=== PATIENT | male | born 1960 | race Caucasian/White ===

== ENCOUNTER 2023-01-16 09:51 | Emergency (ER) | payer OTHER, SELFPAY ==
--- NOTE | ~2023-01-16 | US_ITS ---
EXAMINATION:US venous doppler LE RT INDICATION:Right lower extremity and calf pain TECHNIQUE: Multiple grayscale, color flow and Doppler images of the right lower extremity deep venous systems were obtained and reviewed. COMPARISON:Ultrasound dated 04/30/2019 FINDINGS: The common femoral, superficial femoral and popliteal veins demonstrate normal respiratory variation, augmentation and compressibility. Color flow is also seen within the posterior tibial, gr eater saphenous and profunda veins. IMPRESSION: 1: No lower extremity deep venous thrombosis. Reviewed, dictated and finalized at location A.
[2023-01-16 09:53] VITALS: BP 148/89; PULSE 125; RESP 18; TEMP 36.6; O2SAT 99
[2023-01-16 11:45] VITALS: BP 158/90; PULSE 109; RESP 18; O2SAT 99
--- NOTE | 2023-01-16 12:09 | ED.EXTPRO ---
HPI - Extremity Problem General Chief complaint: Extremity Problem,Nontraumatic <Misha Puga PA-C - Last Filed: 01/16/23 14:59> Stated complaint: right leg pain and wound since friday <Misha Puga PA-C - Last Filed: 01/16/23 14:59> Time Seen by Provider: 01/16/23 11:40 <CHARLENE Dean Last Filed: 01/16/23 14:59> Source: patient <CHARLENE Dean Last Filed: 01/16/23 14:59> Mode of arrival: ambulatory <CHARLENE Dean Last Filed: 01/16/23 14:59> Limitations: no limitations <Misha Puga PA-C - Last Filed: 01/16/23 14:59> History of Present Illness HPI Narrative: This is a 62-year-old male who presents to the ED with chief complaint of right lower leg pain redness and warmth x2 days. Notes a skin break in the skin of the right lower leg. States that he did not have any injuries. Reports swelling in the right lower leg. States he has not had anything like this before. Denies drainage from the leg. Denies fevers, chills, chest pain, shortness of breath, nausea, vomiting, abdominal pain. <Misha Puga PA-C - Last Filed: 01/16/23 14:59> Related Data Allergies/Adverse reactions: Allergies Allergy/AdvReac Type Severity Reaction Status Date / Time No Known Allergies Allergy Verified 01/16/23 11:49 <Misha Puga PA-C - Last Filed: 01/16/23 14:59> Review of Systems Review of Systems: CONSTITUTIONAL: Denies fever, chills, or sweats. EYES: Denies visual changes, redness, or discharge. ENT: Denies rhinorrhea, congestion, sore throat, or otalgia. CARDIOVASCULAR: Denies chest pain, palpitations, or edema. RESPIRATORY: Denies cough or dyspnea. GASTROINTESTINAL: Denies abdominal pain, nausea, vomiting, or diarrhea. GENITOURINARY: Denies dysuria or hematuria. SKIN: Endorses erythema and warmth. Denies rash or itching. MUSCULOSKELETAL: Endorses right lower leg pain. Denies back pain, joint pain, or myalgia. NEUROLOGIC: Denies headache, numbness, dizziness, or weakness. PSYCHIATRIC: Denies anxiety or depression. <Misha Puga PA-C - Last Filed: 01/16/23 14:59> Exam Narrative: GENERAL: Well-appearing, well-nourished, and in no acute distress. HEAD: Normocephalic, atraumatic. EYES: PERRLA and EOMI. ENT: Nares clear, no rhinorrhea or epistaxis. Mucous membranes moist. Oropharynx without tonsillar hypertrophy exudate or other lesions. NECK: Supple. No adenopathy or masses. CHEST: No respiratory distress. Clear to auscultation. No wheezes rales or rhonchi HEART: Regular rate and rhythm. No murmur heard. Normal peripheral pulses. ABDOMEN: Soft, nontender, nondistended, normal active bowel sounds. EXTREMITIES: RLE: Mild swelling of the right foot. Mild erythema of the right callahan. Moderate tenderness in the area of erythema. No drainage. Warmth present. Mild calf tenderness to palpation. LLE: benign Exam is otherwise normal. Normal range of motion. No edema. Ambulatory. SKIN: Erythema and warmth present. Warm, dry, no rash. Old healed wound to the right lateral callahan. NEURO: Alert and oriented x3. No focal deficits. PSYCH: Normal mood and affect. <Misha Puga PA-C - Last Filed: 01/16/23 14:59> Course HEALTH AND SAFETY TECHNICIAN/PA Physician Supervision For this patient encounter, I reviewed the HEALTH AND SAFETY TECHNICIAN or PA documentation, treatment plan, and medical decision making; and I had [id number] time with this patient. 62-year-old male presenting to the emerged department for evaluation of right lower extremity erythema and pain. Patient was negative for DVTs. Patient does have changes of chronic venous stasis and patient also has some erythema concerning for acute infection. Patient was started on antibiotics in the emergency department. Patient was encouraged of close follow-up with his primary care physician for wound check. All questions and concerns were addressed. Patient was well-appearing at time of discharge. <Duane Omer MD - Last Filed: 01/16/23 18:29> Vital
[2023-01-16] MEDS: AMPICILLIN SULB 3 GM/NS 100 ML 3 GM/100 ML VIAL IVPB (12:43)
[2023-01-16] MEDS: SODIUM CHLORIDE 0.9% IV 1,000 ML 999 ML IV CONT (12:43)
[2023-01-16 12:50] LABS: Basophils Absolute Auto 0.1 K/mm3 (0.0-0.1); Basophils Percent Auto 0.6 % (0.2-1.2); Eosinophils Absolute Auto 0.1 K/mm3 (0-0.3); Eosinophils Percent Auto 0.9 % (0-4.4); Hematocrit 48.9 % (42.0-52.0); Hemoglobin 16.6 g/dL (14.0-18.0); Immature Granulocyte Absolute 0.03 K/mm3 (0.00-0.031); Immature Granulocyte Percent A 0.3 % (0-0.5); Lymphocytes Absolute Auto 2.09 K/mm3 (0.9-3.2); Lymphocytes Percent Auto 19.3 % (18.3-44.2); Mean Corpuscular HGB Conc 33.9 g/dl (32-36); Mean Corpuscular Hemoglobin 32.4 pg (26-34); Mean Corpuscular Volume 95.5 fl (80-100); Mean Platelet Volume 10.3 fl (7.4-10.4); Monocytes Absolute Auto 0.9 K/mm3 (0.1-0.6); Monocytes Percent Auto 8.5 % (2.6-8.5); Neutrophils Absolute Auto 7.6 K/mm3 (1.3-6.7); Neutrophils Percent Auto 70.4 % (45.5-73.1); Platelet Count Result 204 k/mm3 (150-375); Red Blood Count 5.12 M/mm3 (4.6-6.20); Red Cell Distribution Width 12.7 % (11.5-14.5); White Blood Count 10.8 K/mm3 (4.5-10.0)
[2023-01-16 13:02] LABS: Prothrombin Time 12.9 Seconds (11.1-14.7)
[2023-01-16 13:03] LABS: Partial Thromboplastin Time 27.7 SECONDS (22.3-36.8)
[2023-01-16 13:08] LABS: Anion Gap 6 mmol/L (8-16); Blood Urea Nitrogen 11 mg/dL (9-20); CRP 0.9 mg/dL (<1.0); Calcium 8.8 mg/dL (8.4-10.2); Carbon Dioxide 32 mmol/L (22-30); Chloride 100 mmol/L (98-107); Estimated CRCL calculation 85 ml/min; Estimated Glomerular Filt Rate > 60; Glucose 104 mg/dL (65-110); Potassium 3.5 mmol/L (3.4-5.0); Sodium 138 mmol/L (137-145)
[2023-01-16 15:02] VITALS: BP 157/87; PULSE 101; RESP 18; O2SAT 98
== END 2023-01-16 15:22 | disposition home or self-care (01) ==
PROVIDERS: Emergency Provider Physician Assistant
DX: L03.115 Cellulitis of right lower limb (principal)
CPT/HCPCS: 36415; 80048; 85025; 85610; 85730; 86140; 93971; 96365; 96366; 99284; J0295; J7030

== ENCOUNTER 2023-07-20 21:06 | Emergency (ER) | payer OTHER, SELFPAY ==
[2023-07-20 21:17] VITALS: BP 149/94; PULSE 124; RESP 16; TEMP 36.7; O2SAT 95
--- NOTE | 2023-07-20 23:32 | ED.GENADULT ---
HPI - General Adult General Chief complaint: Wound/Laceration Stated complaint: R leg wound Time Seen by Provider: 07/20/23 22:58 History of Present Illness HPI narrative: 63-year-old male presented to the emergency department for evaluation of a wound to his right lower leg. Patient states over the course of the last 8 to 9 days he has had increased erythema and drainage from a wound on his right lower leg. Patient does have a prior history of cellulitis. Related Data Allergies Allergy/AdvReac Type Severity Reaction Status Date / Time No Known Allergies Allergy Verified 01/16/23 11:49 Review of Systems Review of Systems: All systems reviewed & are unremarkable except as noted in HPI and below Exam Narrative: APPEARANCE: Well appearing, no pain, no distress, well-nourished. HEAD: normocephalic, atraumatic. EYES: PERRLA/EOMI, conjunctivae clear. NOSE: Normal no drainage NECK: Supple. No adenopathy, no masses. RESPIRATORY: Airway patent, respirations nonlabored. Clear to auscultation bilaterally, no rales, rhonchi, wheezing. CARDIOVASCULAR: Regular rate and rhythm without murmurs rubs or gallops. ABDOMINAL: Soft, nontender, nondistended, normal bowel sounds MUSCULOSKELETAL: Moves all extremities. Strength/ROM intact, No edema, No calf tenderness. NEURO: Alert. Cranial nerves II through XII intact. Grossly intact SKIN: Cellulitis of right lower extremity Course Course Emergency Course: 61-year-old male presented emergency department for evaluation of wound on his right lower leg that is consistent with cellulitis. Patient was started on Keflex emergency department discharged home with Keflex. Patient was encouraged of close follow-up with his primary care physician for a wound check. All question concerns were addressed and patient was well-appearing at time of discharge. Vital Signs Vital signs: Vital Signs Temperature 98.0 F 07/20/23 21:17 Pulse Rate 124 H 07/20/23 21:17 Respiratory Rate 16 07/20/23 21:17 Blood Pressure 149/94 H 07/20/23 21:17 Pulse Oximetry 95 07/20/23 21:17 Oxygen Delivery Room Air 07/20/23 21:17 Temperature 98.0 F 07/20/23 21:17 Pulse Rate 124 H 07/20/23 21:17 Respiratory Rate 16 07/20/23 21:17 Blood Pressure 149/94 H 10/08/23 21:17 Pulse Oximetry 95 07/20/23 21:17 Oxygen Delivery Room Air 07/20/23 21:17 Medical Decision Making Differential Diagnosis Differential Diagnosis: Cellulitis, chronic venous stasis, abscess, DVT Vital Signs Vital Signs: Vital Signs Temperature 98.0 F 07/20/23 21:17 Pulse Rate 124 H 07/20/23 21:17 Respiratory Rate 16 07/20/23 21:17 Blood Pressure 149/94 H 07/20/23 21:17 Pulse Oximetry 95 07/20/23 21:17 Oxygen Delivery Room Air 07/20/23 21:17 Temperature 98.0 F 07/20/23 21:17 Pulse Rate 124 H 07/20/23 21:17 Respiratory Rate 16 07/20/23 21:17 Blood Pressure 149/94 H 07/20/23 21:17 Pulse Oximetry 95 07/20/23 21:17 Oxygen Delivery Room Air 07/20/23 21:17 Discharge Plan Discharge Clinical Impression: Cellulitis Patient Disposition: Home, Self-Care Condition: Stable Instructions: Antibiotic Form, Cellulitis (ED) Additional Instructions: Antibiotic as directed until completed. Have close follow-up with your primary care physician. If you have any worsening symptoms then please call or return to the emergency department. Prescriptions: New cephalexin 500 mg capsule 500 mg PO Q8H 7 Days Qty: 21 0RF No Action cephalexin 500 mg capsule 500 mg PO Q8H 7 Days Qty: 21 0RF Follow-up/Referrals: PHYSICIAN,FIELD APPRAISER [Primary Care Provider] -
[2023-07-20] MEDS: CEPHALEXIN 500 MG CAPSULE PO (23:57)
== END 2023-07-21 00:14 | disposition home or self-care (01) ==
PROVIDERS: Emergency Provider Emergency Medicine
DX: L03.115 Cellulitis of right lower limb (principal)
CPT/HCPCS: 99283; A9270

== ENCOUNTER 2023-07-29 14:07 | Outpatient (CLI) | payer OTHER, SELFPAY ==
[2023-07-29 15:24] LABS: Hematocrit 52.7 % (42.0-52.0); Hemoglobin 17.4 g/dL (14.0-18.0); Mean Corpuscular Hemoglobin 31.9 pg (26-34); Mean Corpuscular Volume 96.5 fl (80-100); Mean Platelet Volume 11.8 fl (7.4-10.4); Platelet Count Result 196 k/mm3 (150-375); Red Blood Count 5.46 M/mm3 (4.6-6.20); Red Cell Distribution Width 12.1 % (11.5-14.5); White Blood Count 10.4 K/mm3 (4.5-10.0)
[2023-07-29 15:26] LABS: Appearance Urine Clear (Clear); Bilirubin Urine Negative (Negative); Blood Urine Negative (Negative); Color Urine Yellow (Yellow); Glucose Urine UA Negative (Negative); Ketones Urine Negative (Negative); Leukocyte Esterase Ur Negative LEU/UL (NEGATIVE); Nitrate Urine Negative (Negative); Protein Urine Negative (Negative); Specific Grav Ur 1.018 (1.001-1.035); Urobilinogen Urine 0.2 mg/dL (<2.0)
[2023-07-29 15:34] LABS: Alanine Aminotransferase 31 U/L (6-50); Albumin Level 4.7 g/dL (3.5-5.1); Alkaline Phosphatase 80 U/L (38-126); Anion Gap 8 mmol/L (8-16); Aspartate Amino Transferase 29 U/L (17-59); Bilirubin,Total 0.7 mg/dL (0.2-1.3); Blood Urea Nitrogen 14 mg/dL (9-20); Calcium 9.3 mg/dL (8.4-10.2); Carbon Dioxide 31 mmol/L (22-30); Chloride 98 mmol/L (98-107); Cholesterol 246 mg/dL (0-200); Estimated Glomerular Filt Rate > 60; Glucose 102 mg/dL (65-110); HDL Direct 47 mg/dL; Potassium 3.4 mmol/L (3.4-5.0); Sodium 137 mmol/L (137-145); Triglycerides 175 mg/dL (<150)
[2023-07-29 15:35] LABS: Add Urine Microscopic? NO
[2023-07-29 15:38] LABS: Rheumatoid Factor < 12.0 IU/ML (<12)
[2023-07-29 15:45] LABS: LDL Cholesterol Direct 145 mg/dL
[2023-07-29 15:50] LABS: MALB Creatinine Ratio 6.6 mg/g (0-30); Microalbumin Urine Random 7.3 mg/L (0-16.7)
[2023-07-29 16:02] LABS: Free T4 Free Thyroxine 1.34 ng/mL (0.78-2.19); Vitamin D 25 Hydroxy 16.1 ng/mL
[2023-07-29 16:05] LABS: Prostate Specific Antigen 5.5 ng/mL (< OR = 4.0)
[2023-07-29 16:10] LABS: Hemoglobin A1C 5.7 % (<5.7)
[2023-07-29 16:14] LABS: Hepatitis B Surface Antigen Negative (Negative)
[2023-07-29 16:15] LABS: HIV 1/2 Ab P24 Ag Result Negative (Negative)
[2023-07-29 16:20] LABS: HAV RESULT Negative (Negative); Hepatitis B Core IgM Result Negative (Negative)
[2023-07-29 16:22] LABS: Erythrocyte Sedimentation Rate 4 mm/hr (0-20)
[2023-07-29 16:31] LABS: Hepatitis C Virus Antibody Negative (Negative)
[2023-07-29 17:38] LABS: Iron 71 ug/dL (49-181)
[2023-07-30 13:18] LABS: Rapid Plasma Reagin Non-Reactive (NonReactive)
[2023-08-03 14:44] LABS: Anti Nuclear Antibody Titer 1:40 (Negative)
== END 2023-07-29 14:08 | disposition home or self-care (01) ==
PROVIDERS: Visit Provider Emergency Medicine
DX: E78.5 Hyperlipidemia, unspecified (principal); K21.00 Gastro-esophageal reflux disease with esophagitis, without bleeding
CPT/HCPCS: 36415; 80053; 80061; 80074; 81003; 82043; 82306; 83036; 83540; 84153; 84439; 84443; 85027; 85652; 86038; 86039; 86430; 86592; 86703; G0432

== ENCOUNTER 2023-08-14 13:52 | Outpatient (CLI) | payer OTHER, SELFPAY ==
--- NOTE | ~2023-08-14 | US_ITS ---
EXAMINATION:US venous doppler LE RT INDICATION:Leg swelling and edema TECHNIQUE: Multiple grayscale, color flow and Doppler images of the right lower extremity deep venous systems were obtained and reviewed. COMPARISON:No prior studies for comparison. FINDINGS: The common femoral, superficial femoral and popliteal veins demonstrate normal respiratory variation, augmentation and compressibility. Color flow is also seen within the posterior tibial, pe roneal, greater saphenous and profunda veins. IMPRESSION: 1: No lower extremity deep venous thrombosis. Reviewed, dictated and finalized at location A.
== END 2023-08-14 13:53 | disposition home or self-care (01) ==
PROVIDERS: PCP Emergency Medicine; Visit Provider Emergency Medicine
DX: M79.89 Other specified soft tissue disorders (principal)
CPT/HCPCS: 93971

== ENCOUNTER 2024-04-15 21:32 | Emergency (ER) | payer OTHER, SELFPAY ==
[2024-04-15] VITALS (18 sets, daily range): BP systolic 119–150; BP diastolic 69–94; PULSE 108–124; RESP 16–30; TEMP 36.7; O2SAT 90–97
--- NOTE | ~2024-04-15 | CT_ITS ---
CT of the Abdomen and Pelvis: Indication: Abdominal pain Technique: 2.5 mm axial scans were obtained through the abdomen and pelvis following intravenous adm inistration of 100 cc of Omnipaque 350. Dose reduction technique was used on this scan by utilizing a utomated exposure control and iterative reconstruction technique. The dose-length product (DLP) was 1 069.57 mGy-cm. Findings: Scans through the lung bases are unremarkable. The liver, spleen, pancreas, gallbladder, adrenals and kidneys are within normal limits. No evidence of aortic aneurysm. No lymphadenopathy. No bowel obstruction or bowel wall thickening. There is no evidence to suggest acute appendicitis. Sm all fat-containing umbilical hernia present. Possible minimal haziness in the mesentery with tiny lym ph nodes present. Images through the pelvis were performed. Urinary bladder unremarkable. No pelvic mass seen. No ascit es. 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 Small fat-containing umbilical hernia. Reviewed, dictated and finalized at [facility]. 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 Small fat-containing umbilical hernia.
[2024-04-15 22:21] LABS: Basophils Percent Auto 0.1 % (0.2-1.2); Hematocrit 48.7 % (42.0-52.0); Hemoglobin 16.7 g/dL (14.0-18.0); Immature Granulocyte Absolute 0.07 K/mm3 (0.00-0.031); Immature Granulocyte Percent A 0.4 % (0-0.5); Immature Platelet Fraction Pct 4.5 % (0.9-11.2); Lymphocytes Percent Auto 1.9 % (18.3-44.2); Mean Corpuscular HGB Conc 34.3 g/dl (32-36); Mean Corpuscular Hemoglobin 32.7 pg (26-34); Mean Corpuscular Volume 95.5 fl (80-100); Mean Platelet Volume 10.4 fl (7.4-10.4); Monocytes Absolute Auto 0.8 K/mm3 (0.1-0.6); Monocytes Percent Auto 4.8 % (2.6-8.5); Neutrophils Absolute Auto 14.7 K/mm3 (1.3-6.7); Neutrophils Percent Auto 92.8 % (45.5-73.1); Platelet Count Result 150 k/mm3 (150-375); Red Cell Distribution Width 12.1 % (11.5-14.5); White Blood Count 15.9 K/mm3 (4.5-10.0)
[2024-04-15 22:28] LABS: Platelet Estimate Adequate (Adequate); Schistocytes None Seen
[2024-04-15 22:29] LABS: Alanine Aminotransferase 22 U/L (6-50); Albumin Level 4.5 g/dL (3.5-5.1); Alkaline Phosphatase 74 U/L (38-126); Anion Gap 6 mmol/L (4-12); Aspartate Amino Transferase 23 U/L (17-59); Blood Urea Nitrogen 16 mg/dL (9-20); Calcium 8.9 mg/dL (8.4-10.2); Carbon Dioxide 28 mmol/L (22-30); Chloride 104 mmol/L (98-107); Estimated CRCL calculation 85 ml/min; Estimated Glomerular Filt Rate > 60; Glucose 177 mg/dL (65-110); Lipase 35 U/L (23-300); Potassium 3.9 mmol/L (3.4-5.0); Sodium 138 mmol/L (137-145)
[2024-04-15] MEDS: SODIUM CHLORIDE 0.9% IV 1,000 ML 999 ML IV CONT ×2 (23:29→23:30)
[2024-04-15] MEDS: ONDANSETRON INJ 4 MG/2 ML VIAL IV PUSH (23:29)
--- NOTE | 2024-04-15 23:32 | ED.ABDPAIN ---
HPI - Abdominal Pain General Chief Complaint: Abdominal Pain Stated Complaint: abd pain, nausea, diarrhea since 1200 today Time Seen by Provider: 04/15/24 22:08 Source: patient Mode of arrival: ambulatory Limitations: no limitations History of Present Illness HPI narrative: patient is a 64-year-old male who presents the ED with report of nausea, vomiting, diarrhea. Patient reports he developed symptoms and began feeling unwell around noon today. Complains of nausea, vomiting, diffuse abdominal pain/bloating. He then developed diarrhea around 7:00 p.m.. Has had multiple episodes of each. Denies rectal bleeding or melena. Denies known fevers, does report diaphoresis. Denies urinary complaints. Denies bad food exposure, sick contacts. Related Data Allergies Allergy/AdvReac Type Severity Reaction Status Date / Time No Known Allergies Allergy Verified 01/16/23 11:49 Review of Systems Review of Systems: CONSTITUTIONAL: See HPI. GASTROINTESTINAL: See HPI. GENITOURINARY: Denies dysuria or hematuria. MUSCULOSKELETAL: Denies back pain, extremity pain, myalgia. NEUROLOGIC: Denies headache, dizziness, numbness, or weakness. All systems reviewed & are unremarkable except as noted in HPI and below Exam Narrative: GENERAL: Chronically ill-appearing, morbidly obese with BMI of 40.3, in no acute distress. HEAD: Normocephalic, atraumatic. RESPIRATORY: Airway patent, respirations nonlabored. Clear to auscultation bilaterally, no rales, rhonchi, wheezing. CARDIOVASCULAR: Tachycardic with regular rhythm without murmurs, rubs, or gallops. ABDOMINAL: Soft, diffuse tenderness to palpation, no significant focal tenderness. Nondistended. Normoactive BS. MUSCULOSKELETAL: Moves all extremities. No gross deformities. Venous stasis changes to RLE. SKIN: Warm, dry, normal color. NEURO: A&O X3. Speech clear. Cranial nerves II-XII grossly intact. Steady gait. No ataxic movements. PSYCHIATRIC: Appropriate mood and affect. Normal interaction. Course Vital Signs Vital signs: Vital Signs Temperature 98.1 F 04/15/24 21:40 Pulse Rate 108 H 04/15/24 21:40 Respiratory Rate 18 04/15/24 21:40 Blood Pressure 119/69 04/15/24 21:40 Pulse Oximetry 97 04/15/24 21:40 Oxygen Delivery Room Air 04/15/24 21:40 Temperature 98.1 F 04/15/24 21:40 Pulse Rate 118 H 04/16/24 05:02 Respiratory Rate 18 04/16/24 05:02 Blood Pressure 122/73 04/16/24 05:02 Pulse Oximetry 93 04/16/24 05:02 Oxygen Delivery Room Air 04/15/24 21:40 MDM - Abdominal Pain MDM Narrative Medical decision making narrative: Patient presented to ED with onset of nausea, vomiting, diarrhea, abdominal pain/bloating around noon today. Sx's persistent since. Patient tachycardic upon arrival, though this does appear chronic per previous ED visits, always > 100BPM. He is afebrile, in no acute distress. CBC with white blood cell count of 15.9. Neutrophil predominance. No bandemia. CMP unremarkable. Stable electrolytes, kidney function, LFTs/lipase. Lactic acid did result elevated at 3.3. Fluids ongoing. UA with trace ketones, no evidence of infection. CT scan of abdomen pelvis was obtained Showing findings consistent with enteritis. This is consistent with patient's clinical picture and presentation. No bowel obstruction. Lactic acid normalized with fluids. Otherwise feel patient is safe for discharge home with continued outpatient follow-up/management. Given leukocytosis with initial elevated lactic, will treat enteritis as infectious with Augmentin. Will prescribe Zofran for home use. Patient advised to follow-up with his primary care doctor for further evaluation. Given strict return precautions. He agrees with plan. Feeling better with supportive therapy. Discharged in stable condition. Medical Records Attestation: I reviewed the patient's medical records. Lab Data Attestation: I reviewed the patient's lab results. 04/15/24
[2024-04-16] VITALS (42 sets, daily range): BP systolic 119–171; BP diastolic 67–94; PULSE 111–134; RESP 10–30; O2SAT 87–95
[2024-04-16 00:38] LABS: Lactic Acid Reflex 3.3 mmol/L (0.7-2.0)
[2024-04-16 00:53] LABS: Appearance Urine Clear (Clear); Bilirubin Urine Negative (Negative); Blood Urine Negative (Negative); Color Urine Yellow (Yellow); Glucose Urine UA Negative (Negative); Ketones Urine Trace mg/dL (Negative); Leukocyte Esterase Ur Negative LEU/UL (Negative); Nitrate Urine Negative (Negative); Protein Urine Negative (Negative); Specific Grav Ur 1.037 (1.001-1.035); Urobilinogen Urine 0.2 mg/dL (<2.0); pH Urine 6.5 (5.0-9.0)
[2024-04-16 00:55] LABS: Add Urine Microscopic? NO
[2024-04-16 02:59] LABS: Magnesium 1.8 mg/dL (1.6-2.3)
[2024-04-16 03:13] LABS: Reflex Lactic Acid Yes or No Add Lactic
[2024-04-16 03:52] LABS: Lactic Acid 1.6 mmol/L (0.7-2.0)
== END 2024-04-16 05:04 | disposition home or self-care (01) ==
PROVIDERS: Student in an Organized Health Care Education/Training Program; Emergency Provider Physician Assistant
DX: K52.9 Noninfective gastroenteritis and colitis, unspecified (principal); K42.9 Umbilical hernia without obstruction or gangrene
CPT/HCPCS: 36415; 74177; 80053; 81003; 83605; 83690; 83735; 85025; 85055; 96361; 96374; 99284; J2405; J7030; Q9967

== ENCOUNTER 2024-06-04 08:51 | Emergency (ER) | payer OTHER, SELFPAY ==
[2024-06-04] VITALS (7 sets, daily range): BP systolic 132–158; BP diastolic 82–99; PULSE 96–120; RESP 14–22; TEMP 36.6; O2SAT 91–100
--- NOTE | ~2024-06-04 | US_ITS ---
EXAMINATION: US venous doppler LE RT DATE: 06/04/2024 10:27 INDICATION: Right lower limb pain and swelling. TECHNIQUE: Grayscale ultrasound images without and with compression and Doppler ultrasound images of the right lower extremity veins were obtained. COMPARISON: Ultrasound 08/14/2023 FINDINGS: The visualized portions of right common femoral vein, profunda (deep) femoral vein, femoral vein, pop liteal vein, peroneal veins, posterior tibial veins, and greater saphenous vein outflow are patent. IMPRESSION: 1. No deep venous thrombosis. Reviewed, dictated and finalized at location A.
--- NOTE | 2024-06-04 10:05 | ED.WOUNDLAC ---
HPI - Wound/Laceration General Chief Complaint: Wound/Laceration Stated Complaint: right leg pain, ?cellulitis Time Seen by Provider: 06/04/24 09:25 Source: patient Mode of arrival: ambulatory Limitations: no limitations History of Present Illness HPI narrative: Patient is a 64-year-old male who presents the ED with concern for recurrent cellulitis to his right lower extremity. Patient reports he has been dealing with recurrent cellulitis in his R lower leg since 2019. he began noticing redness, tenderness over the last 4 days which has continued to worsen since then. He is concerned for recurrent cellulitis. He denies any known fevers. Denies injury. Denies history of diabetes. Related Data Allergies Allergy/AdvReac Type Severity Reaction Status Date / Time No Known Allergies Allergy Verified 06/04/24 09:23 Review of Systems Review of Systems: All systems reviewed & are unremarkable except as noted in HPI. All systems reviewed & are unremarkable except as noted in HPI and below Exam Narrative: GENERAL: Anxious appearing, obese with BMI of 39.5, non-toxic, in no acute distress. HEAD: Normocephalic, atraumatic. RESPIRATORY: Airway patent, respirations nonlabored. Clear to auscultation bilaterally, no rales, rhonchi, wheezing. CARDIOVASCULAR: Tachycardic with regular rhythm. Pedal pulses intact. MUSCULOSKELETAL: Moves all extremities. No gross deformities. SKIN: Warm, dry, normal color. Venous stasis changes to R lower extremity. Redness, focal tenderness to palpation throughout R lower leg. Area of skin excoriation/friable tissue to R lower lateral leg with some serous weeping throughout leg. No purulent drainage. NEURO: A&O X3. Speech clear. Cranial nerves II-XII grossly intact. Steady gait. No ataxic movements. PSYCHIATRIC: Anxious. Normal interaction. Course Vital Signs Vital signs: Vital Signs Temperature 97.9 F 06/04/24 09:15 Pulse Rate 120 H 06/04/24 09:15 Respiratory Rate 22 H 06/04/24 09:15 Blood Pressure 132/95 H 06/04/24 09:15 Pulse Oximetry 98 06/04/24 09:15 Oxygen Delivery Room Air 06/04/24 09:15 Temperature 97.9 F 06/04/24 09:15 Pulse Rate 100 06/04/24 13:55 Respiratory Rate 16 06/04/24 13:55 Blood Pressure 158/82 H 06/04/24 13:55 Pulse Oximetry 100 06/04/24 13:55 Oxygen Delivery Room Air 06/04/24 09:15 MDM - Wound/Laceration MDM Narrative Medical decision making narrative: patient presented to ED with concern for recurrent cellulitis of right lower extremity. History of similar. Patient tachycardic upon arrival, though does appear visually anxious. Per ED records, patient is tachycardic every time he is here, with similar rates. He denies chest pain. Cbc with leukocytosis of 13.9. CMP unremarkable. Lactic acid minimally elevated to 2.4. CRP you minimally elevated as well. Venous ultrasound negative for DVT. Will treat for cellulitis. Patient given dose of Ancef in the ED. Will discharge on Keflex. He has received this abx before with improvement of previous cellulitic episodes. Feel patient is safe for discharge home with close outpatient follow-up. No indication for admission at this time. Tachycardia resolved with fluids and patient calming down. He feels comfortable with discharge home. I discussed strict return precautions. He voiced understanding. I recommended close follow-up with PCP for further evaluation. Patient was in agreement with plan. Discharged in stable condition. Medical Records Attestation: I reviewed the patient's medical records. Lab Data Attestation: I reviewed the patient's lab results. 06/04/24 10:01 06/04/24 09:59 Labs: Lab Results 06/04/24 06/04/24 06/04/24 Range/Units 09:59 10:01 12:50 WBC 13.9 H (4.5-10.0) K/mm3 RBC 5.07 (4.6-6.20) M/mm3 Hgb 16.4 (14.0-18.0) g/dL Hct 47.9 (42.0-52.0) % MCV 94.5 (80-100) fl MCH 32.3 (26-34) pg MC
[2024-06-04 10:06] LABS: Basophils Absolute Auto 0.1 K/mm3 (0.0-0.1); Basophils Percent Auto 0.4 % (0.2-1.2); Eosinophils Absolute Auto 0.1 K/mm3 (0-0.3); Eosinophils Percent Auto 0.7 % (0-4.4); Hematocrit 47.9 % (42.0-52.0); Hemoglobin 16.4 g/dL (14.0-18.0); Immature Granulocyte Absolute 0.05 K/mm3 (0.00-0.031); Immature Granulocyte Percent A 0.4 % (0-0.5); Lymphocytes Absolute Auto 1.86 K/mm3 (0.9-3.2); Lymphocytes Percent Auto 13.4 % (18.3-44.2); Mean Corpuscular HGB Conc 34.2 g/dl (32-36); Mean Corpuscular Hemoglobin 32.3 pg (26-34); Mean Corpuscular Volume 94.5 fl (80-100); Mean Platelet Volume 10.7 fl (7.4-10.4); Monocytes Absolute Auto 1.2 K/mm3 (0.1-0.6); Monocytes Percent Auto 8.5 % (2.6-8.5); Neutrophils Absolute Auto 10.6 K/mm3 (1.3-6.7); Neutrophils Percent Auto 76.6 % (45.5-73.1); Platelet Count Result 189 k/mm3 (150-375); Red Blood Count 5.07 M/mm3 (4.6-6.20); Red Cell Distribution Width 12.3 % (11.5-14.5); White Blood Count 13.9 K/mm3 (4.5-10.0)
[2024-06-04 10:20] LABS: Lactic Acid Reflex 2.4 mmol/L (0.7-2.0)
[2024-06-04 10:21] LABS: Alanine Aminotransferase 24 U/L (6-50); Albumin Level 4.4 g/dL (3.5-5.1); Alkaline Phosphatase 82 U/L (38-126); Anion Gap 8 mmol/L (4-12); Aspartate Amino Transferase 28 U/L (17-59); Bilirubin,Total 0.4 mg/dL (0.2-1.3); Blood Urea Nitrogen 12 mg/dL (9-20); Calcium 9.2 mg/dL (8.4-10.2); Carbon Dioxide 31 mmol/L (22-30); Chloride 100 mmol/L (98-107); Estimated CRCL calculation 62 ml/min; Estimated Glomerular Filt Rate > 60; Glucose 137 mg/dL (65-110); INR 0.9; Potassium 3.8 mmol/L (3.4-5.0); Prothrombin Time 12.5 Seconds (11.1-14.7); Sodium 139 mmol/L (137-145)
[2024-06-04 10:22] LABS: Partial Thromboplastin Time 26.4 Seconds (22.3-36.8)
[2024-06-04 11:00] LABS: CRP 2.3 mg/dL (<1.0)
[2024-06-04] MEDS: ceFAZolin 1 GM/NS 50 ML 1 GM/50 ML BAG IVPB (11:10)
[2024-06-04] MEDS: SODIUM CHLORIDE 0.9% IV 500 ML 999 ML IV CONT (11:10)
[2024-06-04 13:04] LABS: Reflex Lactic Acid Yes or No Add Lactic
== END 2024-06-04 13:55 | disposition home or self-care (01) ==
PROVIDERS: Emergency Provider Physician Assistant
DX: L03.115 Cellulitis of right lower limb (principal)
CPT/HCPCS: 36415; 80053; 83605; 85025; 85610; 85730; 86140; 87040; 93971; 96365; 99284; J0690; J7040

== ENCOUNTER 2024-06-11 05:45 | Inpatient (IN) | payer OTHER, SELFPAY ==
[2024-06-11] VITALS (7 sets, daily range): BP systolic 126–170; BP diastolic 81–100; PULSE 93–122; RESP 15–24; TEMP 36.4–37.1; O2SAT 93–97; BMI 41.8
--- NOTE | ~2024-06-11 | XR_ITS ---
Portable chest x-ray Comparison: 04/01/2016 Clinical History: Sepsis Findings: Lungs are clear, without focal consolidation or pleural effusion. Cardiomediastinal silho uette is stable. Bones and soft tissues are unremarkable. Impression: Clear lungs. Reviewed, dictated and finalized at location . Impression: Clear lungs.
--- NOTE | ~2024-06-11 | XR_ITS ---
AP and lateral views of the right tibia/fibula Clinical History: Cellulitis Findings: No acute fracture or dislocation is seen. Osseous alignment is anatomic. Joint spaces are p reserved without significant erosive or degenerative change. Diffuse soft tissue edema noted. Impression: Marked soft tissue edema of the proximal calf, compatible with history of cellulitis. No osseous or articular abnormality seen. Reviewed, dictated and finalized at location . Impression: Marked soft tissue edema of the proximal calf, compatible with history of cellu litis. No osseous or articular abnormality seen.
[2024-06-11 06:31] LABS: Alanine Aminotransferase 28 U/L (6-50); Albumin Level 4.4 g/dL (3.5-5.1); Alkaline Phosphatase 83 U/L (38-126); Anion Gap 8 mmol/L (4-12); Aspartate Amino Transferase 32 U/L (17-59); Bilirubin,Total 0.4 mg/dL (0.2-1.3); Blood Urea Nitrogen 13 mg/dL (9-20); Carbon Dioxide 27 mmol/L (22-30); Chloride 101 mmol/L (98-107); Estimated CRCL calculation 80 ml/min; Estimated Glomerular Filt Rate > 60; Glucose 122 mg/dL (65-110); Sodium 136 mmol/L (137-145)
[2024-06-11 06:35] LABS: CRP 0.6 mg/dL (<1.0)
--- NOTE | 2024-06-11 06:35 | PC.NURSE ---
blood cultures x 2 collected and sent with kurin label in biohazard bag to lab.
[2024-06-11 06:40] LABS: NT Pro B Type Natriuretic Pept 75 pg/mL (19.9-100)
--- NOTE | 2024-06-11 06:46 | ED.GENADULT ---
HPI - General Adult General Chief complaint: Skin/Abscess/Foreign Body Stated complaint: RLE pain, recent dx cellulitis Time Seen by Provider: 06/11/24 05:57 History of Present Illness HPI narrative: Patient is a 64-year-old male who presents to the emergency department this morning complaining of a wound to his right lower extremity. Patient was treated for this wound a recently and was seen our facility on the 04 of June for this cellulitis and started on an oral antibiotic, cephalexin. Patient states that he has finished his course of antibiotics, he has 1 pill left and has noticed that the wound has not improved and area does appear to be infected with some pustular drainage. Patient denies any fevers or chills at home, and is denying any additional symptoms or concerns at this time. Related Data Home Medications Medication Instructions Recorded Confirmed No Home Medications 06/11/24 Allergies Allergy/AdvReac Type Severity Reaction Status Date / Time No Known Allergies Allergy Verified 06/11/24 06:00 Review of Systems Review of Systems: All systems are reviewed and are negative unless stated otherwise in the HPI. Exam Narrative: General: Alert, awake, afebrile, in no acute distress. HEENT: PERRL, no rhinorrhea, no post nasal drip, oropharynx clear. Cardiovascular: Regular rate and rhythm, no murmurs, rubs or gallops, no peripheral edema. Respiratory: Clear to auscultation bilaterally, no tachypnea, no wheezing, no rhonchi, no rubs, no respiratory distress. Abdomen: Soft, nontender, nondistended, no rebound, no guarding, no peritoneal signs. Musculoskeletal: No joint swelling or deformity, normal muscle tone. Skin: Large area of cellulitis with pustular drainage overlying the right lower anterior lateral aspect of the mid callahan concerning for cellulitis. Neurological: Alert and oriented to person, place, and time. Follows all commands. No focal deficits, speech is clear and fluent. Course Vital Signs Vital signs: Vital Signs Temperature 98.6 F 06/11/24 05:47 Pulse Rate 122 H 06/11/24 05:47 Respiratory Rate 24 H 06/11/24 05:47 Blood Pressure 170/96 H 06/11/24 05:47 Pulse Oximetry 97 06/11/24 05:47 Oxygen Delivery Room Air 06/11/24 05:47 Temperature 98.6 F 06/11/24 05:47 Pulse Rate 93 06/11/24 07:12 Respiratory Rate 15 06/11/24 07:12 Blood Pressure 126/100 H 06/11/24 07:12 Pulse Oximetry 97 06/11/24 07:12 Oxygen Delivery Room Air 06/11/24 05:47 Medical Decision Making MDM Narrative Medical decision making narrative: The patient was evaluated by myself in the emergency department. History is obtained from patient who is an independent historian and physical exam was performed. External medical records were reviewed at this time. IV was established and pertinent tests were ordered. Triage vital signs revealed a heart rate of 122 and respiratory rate of 24 and 2nd does this blood work was obtained including blood cultures due to concern for sepsis as patient does meet SIRS criteria. Laboratory results obtained revealing no acute process. Patient's white count is trending downward. Inflammatory markers are normal. Imaging studies obtained included CXR and right tib-fib x-ray which were both independently interpreted by me revealing no acute process. X-rays are currently pending official radiology read. Differential diagnosis considerations include cellulitis, abscess, sepsis. Comorbidities impacting this visit include recent diagnosis of cellulitis and failed outpatient therapy. I have evaluated and discussed social determinants of health with the patient that could potentially impact subsequent diagnosis and treatment plans. On repeat assessment of the patient, reevaluation revealed that the patient is doing well and is in no acute distress. Patient symptoms have remained stable since he arrived to our emergency department. Repeat vital signs were
[2024-06-11 06:55] LABS: Erythrocyte Sedimentation Rate 10 mm/hr (0-20)
[2024-06-11 07:02] LABS: Basophils Absolute Auto 0.1 K/mm3 (0.0-0.1); Basophils Percent Auto 0.7 % (0.2-1.2); Eosinophils Absolute Auto 0.2 K/mm3 (0-0.3); Eosinophils Percent Auto 2.1 % (0-4.4); Hematocrit 48.3 % (42.0-52.0); Hemoglobin 16.3 g/dL (14.0-18.0); Immature Granulocyte Absolute 0.03 K/mm3 (0.00-0.031); Immature Granulocyte Percent A 0.3 % (0-0.5); Immature Platelet Fraction Pct 6.1 % (0.9-11.2); Lymphocytes Absolute Auto 2.11 K/mm3 (0.9-3.2); Lymphocytes Percent Auto 20.2 % (18.3-44.2); Mean Corpuscular HGB Conc 33.7 g/dl (32-36); Mean Corpuscular Volume 94.7 fl (80-100); Mean Platelet Volume 11.3 fl (7.4-10.4); Neutrophils Percent Auto 66.7 % (45.5-73.1); Platelet Count Result 191 k/mm3 (150-375); Red Cell Distribution Width 12.2 % (11.5-14.5); White Blood Count 10.4 K/mm3 (4.5-10.0)
[2024-06-11] MEDS: ceFAZolin 2 GM/D5W 50 ML 2 GM/50 ML BAG IVPB ×3 (07:28→22:46)
[2024-06-11 07:35] LABS: Atypical Lymphocytes Present; Platelet Estimate Adequate (Adequate); Schistocytes None Seen
[2024-06-11] MEDS: VANCOMYCIN 1,500 MG/NS 500 ML 1,500 MG/500 ML BAG 250 MG IVPB ×2 (08:18→20:06)
[2024-06-11] MEDS: KETOROLAC 30 MG/ML VIAL (*BKC) IV PUSH (11:57)
--- NOTE | 2024-06-11 12:47 | PM.IMHP ---
H&P: HPI History of Present Illness Date/Time: 06/11/24 12:45 Chief Complaint: Worsening right leg cellulitis. Narrative: This is a 64-year-old male with hypertension and hyperlipidemia who presented to the emergency department for evaluation of worsening right lower extremity cellulitis. The patient provides the following history. He has a history of recurrent cellulitis in the right leg dating back to 2019. Two weeks ago he developed redness and tenderness in the right lower leg for which he was seen in the ED on 06/04/2024. Right lower extremity venous Doppler ultrasound was negative for DVT. He was diagnosed with cellulitis and was discharged home on cephalexin. He has taken all but 1 dose of his antibiotic but his symptoms have not improved. He denies fever, chills, sweats, nausea, vomiting, diarrhea, calf pain, chest pain, pleuritic pain, palpitations, and shortness of breath. In the ED: He was afebrile on arrival with stable blood pressures. Heart rate has been in the mid 90s to low 100s. Labs were significant for WBC count of 10.4, sodium 136, lactic acid 2.0, CRP 0.6. X-ray of the right leg showed marked soft tissue edema of the proximal calf compatible with history of cellulitis. He was given a dose of vancomycin and cefazolin is being admitted in this setting for further treatment. Review of Systems Review of Systems: 12 systems were reviewed and are negative except for as per HPI. [facility] Past Medical History Medical History (Updated 06/11/24 @ 18:02 by Farnaz Ulloa PA-C) Chronic venous insufficiency Hyperlipidemia Hypertension Surgical History Surgical History History of appendectomy Family History Family History Other Family history non-contributory Social History Social History Social History: Surrogate medical decision maker: Drakevanesa Solorio, joselo. Code status: Full code Smoking status: Never smoker Alcohol intake: never Substance use: never Do You Feel Safe in your Home?: Yes Lack of Transportation: YES Lack of Food: Never True Current Housing: I Have Housing Concerned About Future Housing: No Difficulty Paying Gas/Electric Bills: No Difficulty Paying for Meds: No Currently Unemployed: No Education: Trade/Vocational Certificate Difficulty w/ Childcare or Family Care: No Spiritual care concerns: No Meds Home Medications and Allergies Home Medications Medication Instructions Recorded Confirmed Type No Home Medications 06/11/24 06/11/24 History Allergies Allergy/AdvReac Type Severity Reaction Status Date / Time No Known Allergies Allergy Verified 06/11/24 06:00 Vital Signs Vital Signs - 24 hr 06/11/24 05:47 06/11/24 07:12 06/11/24 08:20 Temperature 98.6 F Pulse Rate 122 H 93 101 H Respiratory Rate 24 H 15 20 Blood Pressure 170/96 H 126/100 H 137/81 Pulse Oximetry 97 97 96 Oxygen Delivery Room Air 06/11/24 08:43 06/11/24 09:30 Temperature 97.6 F Pulse Rate 98 95 Respiratory Rate 18 18 Blood Pressure 142/94 H 132/81 Pulse Oximetry 93 97 Oxygen Delivery Exam Narrative: General: Well-developed, nontoxic-appearing male sitting in a chair at the side of the bed in no distress. Weight: 97 kg. BMI: 41.8. HEENT: Wearing corrective lenses. PERRL, EOMI. Sclera anicteric. Oral mucosa moist. Neck: Supple. Respiratory: Lungs are clear to auscultation bilaterally. Cardiovascular: Regular rate and rhythm with S1-S2. Gastrointestinal: Abdomen is soft, obese, nontender, and nondistended with positive bowel sounds. Skin: Warm and dry. Right lower extremity with changes of chronic venous insufficiency. There is a venous stasis ulcer on the anterior right lower leg. There is erythema and warmth surrounding the wound but the wound itself does not look i
[2024-06-11] MEDS: ENOXAPARIN 40 MG/0.4 ML SYRINGE SUB-Q (13:08)
--- NOTE | 2024-06-11 15:09 | ADMGEN ---
This patient, Rogerio Solorio, was admitted to 3 [facility] Surg Room 316-01. Patient/family oriented to hospital policies and general routines including ID bracelet, bed and alarms, visiting hours, pain management, procedures, bathroom and other care routines, personal items, smoking policy, room service/diet, and visiting hours. Information on how to activate the Rapid Response Team has been discussed. Patient/Family are encouraged to report perceived risks to care and to ask questions if they do not understand what they are told or what they should do.
[2024-06-11] MEDS: ACETAMINOPHEN 325 MG TABLET 650 MG PO (20:18)
[2024-06-12] MEDS: ceFAZolin 2 GM/D5W 50 ML 2 GM/50 ML BAG IVPB ×3 (04:56→21:04)
[2024-06-12] MEDS: ACETAMINOPHEN 325 MG TABLET 650 MG PO ×3 (04:56→21:15)
[2024-06-12 05:39] VITALS: BP 147/78; PULSE 89; RESP 14; TEMP 36.8; O2SAT 98
[2024-06-12 06:48] LABS: Hemoglobin 15.9 g/dL (14.0-18.0); Mean Corpuscular HGB Conc 33.8 g/dl (32-36); Mean Corpuscular Hemoglobin 32.5 pg (26-34); Mean Corpuscular Volume 96.1 fl (80-100); Mean Platelet Volume 10.2 fl (7.4-10.4); Platelet Count Result 199 k/mm3 (150-375); Red Blood Count 4.89 M/mm3 (4.6-6.20); Red Cell Distribution Width 12.3 % (11.5-14.5); White Blood Count 8.8 K/mm3 (4.5-10.0)
[2024-06-12 07:02] LABS: Anion Gap 7 mmol/L (4-12); Blood Urea Nitrogen 10 mg/dL (9-20); Calcium 8.6 mg/dL (8.4-10.2); Carbon Dioxide 27 mmol/L (22-30); Chloride 102 mmol/L (98-107); Estimated CRCL calculation 80 ml/min; Estimated Glomerular Filt Rate > 60; Glucose 132 mg/dL (65-110); Magnesium 2.1 mg/dL (1.6-2.3); Potassium 3.9 mmol/L (3.4-5.0); Sodium 136 mmol/L (137-145)
[2024-06-12 07:45] VITALS: PULSE 107; O2SAT 92
[2024-06-12] MEDS: VANCOMYCIN 1,500 MG/NS 500 ML 1,500 MG/500 ML BAG 125 MG IVPB (08:40)
[2024-06-12] MEDS: ENOXAPARIN 40 MG/0.4 ML SYRINGE SUB-Q (08:40)
--- NOTE | 2024-06-12 08:42 | PM.IMPN ---
Progress Note: A&P Assessment and Plan (1) Cellulitis of right lower leg: Code(s): L03.115 - Cellulitis of right lower limb Status: Acute Assessment and Plan: worsening right lower extremity cellulitis despite completing a course cephalexin as an outpatient as detailed in HPI. He received 1500 mg vancomycin and 2 g cefazolin in the ED and antibiotics will be continued. - Wound consult ordered - will sandrine area of erythema to monitor for improvement (2) Chronic venous insufficiency: Code(s): I87.2 - Venous insufficiency (chronic) (peripheral) Status: Acute (3) Hypertension: Code(s): I10 - Essential (primary) hypertension Status: Acute Assessment and Plan: Blood pressures have been running a bit high and are being monitored; he was previously on hydrochlorothiazide but he stopped going to his previous doctor and he is no longer on any prescription medications. He will need to choose a new primary care provider prior to discharge for follow-up. (4) Prediabetes: Code(s): R73.03 - Prediabetes Status: Acute Assessment and Plan: Check fasting glucose and hemoglobin A1c given elevated random glucose. - hga1c- 6 -will need education and diet changes in order to prevent metabolic complications - Weight loss is recommended as well as BMI 42 (5) Obese: Code(s): E66.9 - Obesity, unspecified Status: Acute Assessment and Plan: - BKI 42 - prediabetes now, hga1c 6 - need diet changes, weight loss, increase physical activity in order to prevent metabolic complication Time Spent With Patient Time with patient: Greater than 35 minutes Subjective Date/time seen: 06/12/24 08:42 Interval history: Worsening right leg cellulitis. Narrative retrieved from H/P: This is a 64-year-old male with hypertension and hyperlipidemia who presented to the emergency department for evaluation of worsening right lower extremity cellulitis. The patient provides the following history. He has a history of recurrent cellulitis in the right leg dating back to 2019. Two weeks ago he developed redness and tenderness in the right lower leg for which he was seen in the ED on 06/04/2024. Right lower extremity venous Doppler ultrasound was negative for DVT. He was diagnosed with cellulitis and was discharged home on cephalexin. He has taken all but 1 dose of his antibiotic but his symptoms have not improved. He denies fever, chills, sweats, nausea, vomiting, diarrhea, calf pain, chest pain, pleuritic pain, palpitations, and shortness of breath. In the ED: He was afebrile on arrival with stable blood pressures. Heart rate has been in the mid 90s to low 100s. Labs were significant for WBC count of 10.4, sodium 136, lactic acid 2.0, CRP 0.6. X-ray of the right leg showed marked soft tissue edema of the proximal calf compatible with history of cellulitis. He was given a dose of vancomycin and cefazolin is being admitted in this setting for further treatment. 06/12- pt is seen and examined. he is up in the chair- doing well- eating lunch, denies n/v/f. Dressing is c/d/i Review of Systems Review of Systems: 12 systems were reviewed and are negative except for as per HPI. Exam Narrative: General: Well-developed, nontoxic-appearing male sitting in a chair at the side of the bed in no distress. Weight: 97 kg. BMI: 41.8. HEENT: Wearing corrective lenses. PERRL, EOMI. Sclera anicteric. Oral mucosa moist. Neck: Supple. Respiratory: Lungs are clear to auscultation bilaterally. Cardiovascular: Regular rate and rhythm with S1-S2. Gastrointestinal: Abdomen is soft, obese, nontender, and nondistended with positive bowel sounds. Skin: Warm and dry. Right lower extremity with changes of chronic venous insufficiency. There is a venous stasis ulcer on the anterior right lower leg. There is erythema and warmth surrounding the wound but the wound itself does not look infected. Extremities: No cyanos
[2024-06-12 14:00] VITALS: BP 152/85; PULSE 100; RESP 18; TEMP 36.5; O2SAT 96
[2024-06-12 20:49] VITALS: BP 145/97; PULSE 91; RESP 18; TEMP 36.6; O2SAT 98
[2024-06-12 21:34] VITALS: BP 148/72
[2024-06-12] MEDS: VANCOMYCIN 1,500 MG/NS 500 ML 1,500 MG/500 ML BAG 150 MG IVPB (21:41)
[2024-06-13] MEDS: ceFAZolin 2 GM/D5W 50 ML 2 GM/50 ML BAG IVPB ×3 (05:13→22:34)
[2024-06-13] MEDS: ACETAMINOPHEN 325 MG TABLET 650 MG PO ×3 (05:13→22:10)
[2024-06-13 05:53] VITALS: BP 151/95; PULSE 85; RESP 20; TEMP 36.6; O2SAT 99
[2024-06-13 07:10] LABS: Hematocrit 49.1 % (42.0-52.0); Hemoglobin 16.6 g/dL (14.0-18.0); Mean Corpuscular HGB Conc 33.8 g/dl (32-36); Mean Corpuscular Hemoglobin 32.9 pg (26-34); Mean Corpuscular Volume 97.2 fl (80-100); Mean Platelet Volume 10.6 fl (7.4-10.4); Platelet Count Result 203 k/mm3 (150-375); Red Blood Count 5.05 M/mm3 (4.6-6.20); Red Cell Distribution Width 12.5 % (11.5-14.5); White Blood Count 9.8 K/mm3 (4.5-10.0)
[2024-06-13 07:38] LABS: Anion Gap 6 mmol/L (4-12); Blood Urea Nitrogen 11 mg/dL (9-20); Calcium 8.9 mg/dL (8.4-10.2); Carbon Dioxide 31 mmol/L (22-30); Chloride 100 mmol/L (98-107); Estimated CRCL calculation 81 ml/min; Estimated Glomerular Filt Rate > 60; Glucose 133 mg/dL (65-110); Potassium 3.6 mmol/L (3.4-5.0); Sodium 137 mmol/L (137-145)
--- NOTE | 2024-06-13 08:51 | PM.IMPN ---
Progress Note: A&P Assessment and Plan (1) Cellulitis of right lower leg: Code(s): L03.115 - Cellulitis of right lower limb Status: Acute Assessment and Plan: worsening right lower extremity cellulitis despite completing a course cephalexin as an outpatient as detailed in HPI. He received 1500 mg vancomycin and 2 g cefazolin in the ED and antibiotics will be continued. - Wound consult ordered - will sandrine area of erythema to monitor for improvement (2) Chronic venous insufficiency: Code(s): I87.2 - Venous insufficiency (chronic) (peripheral) Status: Acute (3) Hypertension: Code(s): I10 - Essential (primary) hypertension Status: Acute Assessment and Plan: Blood pressures have been running a bit high and are being monitored; he was previously on hydrochlorothiazide but he stopped going to his previous doctor and he is no longer on any prescription medications. He will need to choose a new primary care provider prior to discharge for follow-up. (4) Prediabetes: Code(s): R73.03 - Prediabetes Status: Acute Assessment and Plan: Check fasting glucose and hemoglobin A1c given elevated random glucose. - hga1c- 6 -will need education and diet changes in order to prevent metabolic complications - Weight loss is recommended as well as BMI 42 (5) Obese: Code(s): E66.9 - Obesity, unspecified Status: Acute Assessment and Plan: - BKI 42 - prediabetes now, hga1c 6 - need diet changes, weight loss, increase physical activity in order to prevent metabolic complication Plan -blood cultures prelim negative so far- 06/13 Time Spent With Patient Time with patient: Greater than 35 minutes Subjective Date/time seen: 06/13/24 08:51 Interval history: Worsening right leg cellulitis. Narrative retrieved from H/P: This is a 64-year-old male with hypertension and hyperlipidemia who presented to the emergency department for evaluation of worsening right lower extremity cellulitis. The patient provides the following history. He has a history of recurrent cellulitis in the right leg dating back to 2019. Two weeks ago he developed redness and tenderness in the right lower leg for which he was seen in the ED on 06/04/2024. Right lower extremity venous Doppler ultrasound was negative for DVT. He was diagnosed with cellulitis and was discharged home on cephalexin. He has taken all but 1 dose of his antibiotic but his symptoms have not improved. He denies fever, chills, sweats, nausea, vomiting, diarrhea, calf pain, chest pain, pleuritic pain, palpitations, and shortness of breath. In the ED: He was afebrile on arrival with stable blood pressures. Heart rate has been in the mid 90s to low 100s. Labs were significant for WBC count of 10.4, sodium 136, lactic acid 2.0, CRP 0.6. X-ray of the right leg showed marked soft tissue edema of the proximal calf compatible with history of cellulitis. He was given a dose of vancomycin and cefazolin is being admitted in this setting for further treatment. 06/12- pt is seen and examined. he is up in the chair- doing well- eating lunch, denies n/v/f. Dressing is c/d/i 06/13- doing well this am- resting in bed, denies any pain, fever. appetite is good. Review of Systems Review of Systems: 12 systems were reviewed and are negative except for as per HPI. Exam Narrative: General: Well-developed, nontoxic-appearing male sitting in a chair at the side of the bed in no distress. Weight: 97 kg. BMI: 41.8. HEENT: Wearing corrective lenses. PERRL, EOMI. Sclera anicteric. Oral mucosa moist. Neck: Supple. Respiratory: Lungs are clear to auscultation bilaterally. Cardiovascular: Regular rate and rhythm with S1-S2. Gastrointestinal: Abdomen is soft, obese, nontender, and nondistended with positive bowel sounds. Skin: Warm and dry. Right lower extremity with changes of chronic venous insufficiency. There is a venous stasis ulcer on the anterior
[2024-06-13] MEDS: VANCOMYCIN 1,500 MG/NS 500 ML 1,500 MG/500 ML BAG 250 MG IVPB ×2 (09:23→20:23)
[2024-06-13] MEDS: ENOXAPARIN 40 MG/0.4 ML SYRINGE SUB-Q (09:23)
[2024-06-13 14:00] VITALS: BP 145/73; PULSE 107; RESP 22; TEMP 37.1; O2SAT 95
[2024-06-13 20:00] VITALS: PULSE 107; RESP 22; O2SAT 95
[2024-06-13 22:00] VITALS: BP 140/77; PULSE 98; RESP 20; TEMP 36.8; O2SAT 100
[2024-06-14] MEDS: ACETAMINOPHEN 325 MG TABLET 650 MG PO ×3 (05:34→22:24)
[2024-06-14] MEDS: ceFAZolin 2 GM/D5W 50 ML 2 GM/50 ML BAG IVPB ×3 (05:35→22:12)
[2024-06-14 05:37] VITALS: BP 156/98; PULSE 100; RESP 18; TEMP 37.2; O2SAT 99
--- NOTE | 2024-06-14 07:42 | PM.IMPN ---
Progress Note: A&P Assessment and Plan (1) Cellulitis of right lower leg: Code(s): L03.115 - Cellulitis of right lower limb Status: Acute Assessment and Plan: worsening right lower extremity cellulitis despite completing a course cephalexin as an outpatient as detailed in HPI. He received 1500 mg vancomycin and 2 g cefazolin in the ED and antibiotics will be continued. - Wound consult ordered - will sandrine area of erythema to monitor for improvement 06/13- wound was assessed during dressing change- erythema already improving. no drainage. wound care assessed and advised- silver gel, 6x6 silicone foam boarded dressing 06/14- continue therapy. improving de escalation of antibiotics to PO tomorrow and anticipated discharge if stable (2) Chronic venous insufficiency: Code(s): I87.2 - Venous insufficiency (chronic) (peripheral) Status: Acute (3) Hypertension: Code(s): I10 - Essential (primary) hypertension Status: Acute Assessment and Plan: Blood pressures have been running a bit high and are being monitored; he was previously on hydrochlorothiazide but he stopped going to his previous doctor and he is no longer on any prescription medications. He will need to choose a new primary care provider prior to discharge for follow-up. (4) Prediabetes: Code(s): R73.03 - Prediabetes Status: Acute Assessment and Plan: Check fasting glucose and hemoglobin A1c given elevated random glucose. - hga1c- 6 -will need education and diet changes in order to prevent metabolic complications - Weight loss is recommended as well as BMI 42 (5) Obese: Code(s): E66.9 - Obesity, unspecified Status: Acute Assessment and Plan: - BKI 42 - prediabetes now, hga1c 6 - need diet changes, weight loss, increase physical activity in order to prevent metabolic complication Plan -blood cultures prelim negative so far- 06/13 Time Spent With Patient Time with patient: Greater than 35 minutes Subjective Date/time seen: 06/14/24 07:42 Interval history: Worsening right leg cellulitis. Narrative retrieved from H/P: This is a 64-year-old male with hypertension and hyperlipidemia who presented to the emergency department for evaluation of worsening right lower extremity cellulitis. The patient provides the following history. He has a history of recurrent cellulitis in the right leg dating back to 2019. Two weeks ago he developed redness and tenderness in the right lower leg for which he was seen in the ED on 06/04/2024. Right lower extremity venous Doppler ultrasound was negative for DVT. He was diagnosed with cellulitis and was discharged home on cephalexin. He has taken all but 1 dose of his antibiotic but his symptoms have not improved. He denies fever, chills, sweats, nausea, vomiting, diarrhea, calf pain, chest pain, pleuritic pain, palpitations, and shortness of breath. In the ED: He was afebrile on arrival with stable blood pressures. Heart rate has been in the mid 90s to low 100s. Labs were significant for WBC count of 10.4, sodium 136, lactic acid 2.0, CRP 0.6. X-ray of the right leg showed marked soft tissue edema of the proximal calf compatible with history of cellulitis. He was given a dose of vancomycin and cefazolin is being admitted in this setting for further treatment. 06/12- pt is seen and examined. he is up in the chair- doing well- eating lunch, denies n/v/f. Dressing is c/d/i 06/13- doing well this am- resting in bed, denies any pain, fever. appetite is good. Review of Systems Review of Systems: 12 systems were reviewed and are negative except for as per HPI. Exam Narrative: General: Well-developed, nontoxic-appearing male sitting in a chair at the side of the bed in no distress. Weight: 97 kg. BMI: 41.8. HEENT: Wearing corrective lenses. PERRL, EOMI. Sclera anicteric. Oral mucosa moist. Neck: Supple. Respiratory: Lungs are clear to auscultation bilaterally. Card
[2024-06-14] MEDS: VANCOMYCIN 1,500 MG/NS 500 ML 1,500 MG/500 ML BAG 250 MG IVPB ×2 (08:04→19:59)
[2024-06-14] MEDS: ENOXAPARIN 40 MG/0.4 ML SYRINGE SUB-Q (08:05)
[2024-06-14 08:08] LABS: Hematocrit 49.2 % (42.0-52.0); Hemoglobin 15.7 g/dL (14.0-18.0); Mean Corpuscular HGB Conc 31.9 g/dl (32-36); Mean Corpuscular Volume 100.2 fl (80-100); Mean Platelet Volume 10.9 fl (7.4-10.4); Platelet Count Result 149 k/mm3 (150-375); Red Blood Count 4.91 M/mm3 (4.6-6.20); Red Cell Distribution Width 12.5 % (11.5-14.5); White Blood Count 10.8 K/mm3 (4.5-10.0)
[2024-06-14 08:18] LABS: Anion Gap 7 mmol/L (4-12); Blood Urea Nitrogen 10 mg/dL (9-20); Calcium 8.7 mg/dL (8.4-10.2); Carbon Dioxide 28 mmol/L (22-30); Chloride 102 mmol/L (98-107); Estimated CRCL calculation 91 ml/min; Estimated Glomerular Filt Rate > 60; Glucose 118 mg/dL (65-110); Potassium 4.2 mmol/L (3.4-5.0); Sodium 137 mmol/L (137-145)
--- NOTE | 2024-06-14 13:37 | PC.NURSE ---
In speaking with pt he stated that his 78 year old brother was home alone and that he suffers with dementia and that pt has to help him with meals and some basic assistance, pt has some slight developmental delays as well, I questioned if brother was OK by himself, he stated he was being optimistic and that he did lock the door when he left. I placed a call to Mitchel Aggarwal- friend listed in chart- to go and check on brother if he was able, he gladly did go over to the apartment. There was no answer at the door but the police were there at the complex handling another matter and Mr Aggarwal did ask them to do a welfare check. Police were able to get a cheney from management and did make contact with pt's brother Drake, who is fine. Mitchel states he will check in with brother until pt is out of the hospital and back home.
[2024-06-14 14:00] VITALS: BP 145/89; PULSE 102; RESP 20; TEMP 37.3; O2SAT 98
--- NOTE | 2024-06-14 16:02 | PC.NURSE ---
call from Mitchel Aggarwal, he states that pt has previously qualified for in home assistance with a shortage worker and is inquiring if that would be able to be set up again
[2024-06-14 19:33] VITALS: PULSE 102; RESP 20; O2SAT 98
[2024-06-14 21:34] VITALS: BP 142/87; PULSE 97; RESP 20; TEMP 36.6; O2SAT 98
[2024-06-15] MEDS: AMOXICILLIN 500 MG CAPSULE PO ×2 (05:09→14:13)
[2024-06-15 06:00] VITALS: BP 128/73; PULSE 91; RESP 20; TEMP 36.8; O2SAT 98
[2024-06-15 06:53] LABS: Hematocrit 47.7 % (42.0-52.0); Hemoglobin 15.7 g/dL (14.0-18.0); Mean Corpuscular HGB Conc 32.9 g/dl (32-36); Mean Corpuscular Volume 97.3 fl (80-100); Mean Platelet Volume 10.6 fl (7.4-10.4); Platelet Count Result 193 k/mm3 (150-375); Red Cell Distribution Width 12.4 % (11.5-14.5)
[2024-06-15 07:03] LABS: Anion Gap 5 mmol/L (4-12); Blood Urea Nitrogen 9 mg/dL (9-20); Calcium 8.6 mg/dL (8.4-10.2); Carbon Dioxide 31 mmol/L (22-30); Chloride 101 mmol/L (98-107); Estimated CRCL calculation 81 ml/min; Estimated Glomerular Filt Rate > 60; Glucose 121 mg/dL (65-110); Potassium 3.9 mmol/L (3.4-5.0); Sodium 137 mmol/L (137-145)
[2024-06-15] MEDS: DOXYCYCLINE HYCLATE 100 MG TABLET PO (09:26)
[2024-06-15] MEDS: ENOXAPARIN 40 MG/0.4 ML SYRINGE SUB-Q (09:27)
--- NOTE | 2024-06-15 11:56 | PM.DS ---
DS: Admitting Diagnosis Discharge Date 06/15 Admitting Diagnosis leg pain DS: Discharge Diagnosis Discharge Diagnosis (1) Cellulitis of right lower leg: Code(s): L03.115 - Cellulitis of right lower limb Status: Acute Assessment and Plan: worsening right lower extremity cellulitis despite completing a course cephalexin as an outpatient as detailed in HPI. He received 1500 mg vancomycin and 2 g cefazolin in the ED and antibiotics will be continued. - Wound consult ordered - will sandrine area of erythema to monitor for improvement 06/13- wound was assessed during dressing change- erythema already improving. no drainage. wound care assessed and advised- silver gel, 6x6 silicone foam boarded dressing 06/14- continue therapy. improving de escalation of antibiotics to PO tomorrow and anticipated discharge if stable (2) Chronic venous insufficiency: Code(s): I87.2 - Venous insufficiency (chronic) (peripheral) Status: Acute (3) Hypertension: Code(s): I10 - Essential (primary) hypertension Status: Acute Assessment and Plan: Blood pressures have been running a bit high and are being monitored; he was previously on hydrochlorothiazide but he stopped going to his previous doctor and he is no longer on any prescription medications. He will need to choose a new primary care provider prior to discharge for follow-up. (4) Prediabetes: Code(s): R73.03 - Prediabetes Status: Acute Assessment and Plan: Check fasting glucose and hemoglobin A1c given elevated random glucose. - hga1c- 6 -will need education and diet changes in order to prevent metabolic complications - Weight loss is recommended as well as BMI 42 (5) Obese: Code(s): E66.9 - Obesity, unspecified Status: Acute Assessment and Plan: - BKI 42 - prediabetes now, hga1c 6 - need diet changes, weight loss, increase physical activity in order to prevent metabolic complication Plan -blood cultures prelim negative so far- 06/13 DS: Summary Hospital Course Hospital Course: Interval history: Worsening right leg cellulitis. Narrative retrieved from H/P: This is a 64-year-old male with hypertension and hyperlipidemia who presented to the emergency department for evaluation of worsening right lower extremity cellulitis. The patient provides the following history. He has a history of recurrent cellulitis in the right leg dating back to 2018. Two weeks ago he developed redness and tenderness in the right lower leg for which he was seen in the ED on 06/04/2024. Right lower extremity venous Doppler ultrasound was negative for DVT. He was diagnosed with cellulitis and was discharged home on cephalexin. He has taken all but 1 dose of his antibiotic but his symptoms have not improved. He denies fever, chills, sweats, nausea, vomiting, diarrhea, calf pain, chest pain, pleuritic pain, palpitations, and shortness of breath. In the ED: He was afebrile on arrival with stable blood pressures. Heart rate has been in the mid 90s to low 100s. Labs were significant for WBC count of 10.4, sodium 136, lactic acid 2.0, CRP 0.6. X-ray of the right leg showed marked soft tissue edema of the proximal calf compatible with history of cellulitis. He was given a dose of vancomycin and cefazolin is being admitted in this setting for further treatment. 06/12- pt is seen and examined. he is up in the chair- doing well- eating lunch, denies n/v/f. Dressing is c/d/i 06/13- doing well this am- resting in bed, denies any pain, fever. appetite is good. 06/14- doing well- ambulating with no issues. no n/v/d. 06/15 antibiotics switched to PO- tolerating it well. Anticipate discharge today. Care coordination provided resaurces for pt for PCP, private home help. Status at Discharge Functional status at discharge: independent ambulation Overall status at discharge: patient is back to baseline Time Spent with Patient Time attestation: Total time spent providing and/or
[2024-06-15] MEDS: ACETAMINOPHEN 325 MG TABLET 650 MG PO (12:08)
== END 2024-06-15 14:47 | disposition home or self-care (01) | DRG 383 ==
LOC: ANHED 06:54 → ANH3MEDSUR 08:00
PROVIDERS: Physician Assistant; Admitting Provider General Practice; Emergency Provider Emergency Medicine; Visit Provider Nurse Practitioner
DX: L03.115 Cellulitis of right lower limb (principal); I87.2 Venous insufficiency (chronic) (peripheral); E66.9 Obesity, unspecified; E78.5 Hyperlipidemia, unspecified; I10 Essential (primary) hypertension; R73.03 Prediabetes; R73.9 Hyperglycemia, unspecified; Z68.41 Body mass index [BMI] 40.0-44.9, adult
CPT/HCPCS: 36415; 71045; 73590; 80048; 80053; 80202; 83036; 83605; 83735; 83880; 85025; 85027; 85055; 85652; 86140; 87040; 99285; A9270; J0690; J1650; J1885; J3370

== ENCOUNTER 2024-06-28 11:18 | Outpatient (CLI) | payer OTHER, SELFPAY ==
[2024-06-28 12:53] LABS: Basophils Percent Auto 0.6 % (0.2-1.2); Eosinophils Absolute Auto 0.2 K/mm3 (0-0.3); Eosinophils Percent Auto 2.4 % (0-4.4); Hematocrit 50.1 % (42.0-52.0); Hemoglobin 16.7 g/dL (14.0-18.0); Immature Granulocyte Absolute 0.02 K/mm3 (0.00-0.031); Immature Granulocyte Percent A 0.3 % (0-0.5); Lymphocytes Absolute Auto 1.64 K/mm3 (0.9-3.2); Lymphocytes Percent Auto 23.5 % (18.3-44.2); Mean Corpuscular HGB Conc 33.3 g/dl (32-36); Mean Corpuscular Hemoglobin 32.9 pg (26-34); Mean Corpuscular Volume 98.8 fl (80-100); Mean Platelet Volume 11.5 fl (7.4-10.4); Monocytes Absolute Auto 0.7 K/mm3 (0.1-0.6); Monocytes Percent Auto 10.5 % (2.6-8.5); Neutrophils Absolute Auto 4.4 K/mm3 (1.3-6.7); Neutrophils Percent Auto 62.7 % (45.5-73.1); Platelet Count Result 201 k/mm3 (150-375); Red Blood Count 5.07 M/mm3 (4.6-6.20); Red Cell Distribution Width 12.6 % (11.5-14.5)
[2024-06-28 13:11] LABS: Alanine Aminotransferase 21 U/L (6-50); Albumin Level 4.7 g/dL (3.5-5.1); Alkaline Phosphatase 66 U/L (38-126); Anion Gap 11 mmol/L (4-12); Aspartate Amino Transferase 28 U/L (17-59); Bilirubin,Total 0.8 mg/dL (0.2-1.3); Blood Urea Nitrogen 13 mg/dL (9-20); Calcium 9.3 mg/dL (8.4-10.2); Carbon Dioxide 26 mmol/L (22-30); Chloride 100 mmol/L (98-107); Cholesterol 237 mg/dL (0-200); Estimated Glomerular Filt Rate > 60; Glucose 121 mg/dL (65-110); HDL Direct 42 mg/dL; Potassium 4.1 mmol/L (3.4-5.0); Sodium 137 mmol/L (137-145); Triglycerides 163 mg/dL (<150)
[2024-06-28 13:21] LABS: LDL Cholesterol Direct 153 mg/dL
[2024-06-28 14:08] LABS: Hemoglobin A1C 5.9 % (<5.7)
== END 2024-06-28 11:19 | disposition home or self-care (01) ==
LOC: ANHLAB 11:20
PROVIDERS: PCP Nurse Practitioner Family; Visit Provider Nurse Practitioner Family
DX: R73.03 Prediabetes (principal); E78.5 Hyperlipidemia, unspecified; I10 Essential (primary) hypertension; L03.115 Cellulitis of right lower limb
CPT/HCPCS: 36415; 80053; 80061; 83036; 84443; 85025

== ENCOUNTER 2024-07-12 05:01 | Emergency (ER) | payer OTHER, SELFPAY ==
[2024-07-12 05:03] VITALS: BP 151/87; PULSE 128; RESP 20; TEMP 37.1; O2SAT 96
[2024-07-12 05:28] LABS: Bacteria Urine None Seen /hpf; Non Pathogenic Casts 0-2; RBC Urine >100 /hpf (0-2); Squamous Epithelial Cell Urine None Seen /hpf (Few); WBC Urine >100 /hpf (0-3)
[2024-07-12 05:31] LABS: Add Urine Microscopic? YES; Appearance Urine Turbid (Clear); Bilirubin Urine Negative (Negative); Blood Urine 3+ (Negative); Glucose Urine UA Negative (Negative); Ketones Urine 2+ mg/dL (Negative); Leukocyte Esterase Ur 3+ LEU/UL (Negative); Nitrate Urine Negative (Negative); Protein Urine 3+ mg/dL (Negative); Specific Grav Ur 1.024 (1.001-1.035); pH Urine 5.5 (5.0-9.0)
[2024-07-12 05:35] LABS: Color Urine Dark Yellow (Yellow)
[2024-07-12 05:51] VITALS: PULSE 115; RESP 20; O2SAT 94
--- NOTE | 2024-07-12 05:56 | ED.MALEGU ---
HPI - Male Genitourinary General Chief complaint: Urogenital-Male Stated complaint: dysuria Time Seen by Provider: 07/12/24 05:42 History of Present Illness HPI Narrative: 64-year-old male presented for a burning with urination. He states that he has been having a burning urinary pain since noon yesterday. Feels like he cannot completely empty his urine has to go more frequently. Noticed when he felt like to be streaks of blood very minimally that clear up with continued urination. Denies any fever, chills, back pain. Was otherwise in his normal state of health. Was recently started on a course of antibiotics for bilateral lower extremity cellulitis which have been resolved. States he feels completely asymptomatic otherwise besides the burning urinated pain. Related Data Allergies Allergy/AdvReac Type Severity Reaction Status Date / Time No Known Allergies Allergy Verified 07/12/24 05:07 Review of Systems Review of Systems: As reviewed above PMFSH Past Medical History Medical History Chronic venous insufficiency Hyperlipidemia Hypertension Surgical History Surgical History History of appendectomy Family History Family History Father Diabetes mellitus Hypertension Mother Alcoholism Diabetes mellitus Other Family history non-contributory Social History Social History Social History: Surrogate medical decision maker: Drake Solorio, sibling. Code status: Full code Smoking status: Never smoker Alcohol intake: never Substance use: never Do You Feel Safe in your Home?: Yes Lack of Transportation: YES Lack of Food: Never True Current Housing: I Have Housing Concerned About Future Housing: No Difficulty Paying Gas/Electric Bills: No Difficulty Paying for Meds: No Currently Unemployed: No Education: Trade/Vocational Certificate Difficulty w/ Childcare or Family Care: No Spiritual care concerns: No Exam Narrative: GENERAL: [Well-appearing, well-nourished, and in no acute distress.] HEAD: [Normocephalic, atraumatic.] EYES: [PERRLA and EOMI.] ENT: Nares clear, no rhinorrhea or epistaxis. Mucous membranes moist. NECK: Supple. CHEST: [Clear to auscultation. No respiratory distress.] HEART: [Regular rate and rhythm]. No murmur heard. [Normal peripheral pulses.] ABDOMEN: Protuberant but not distended, [nontender], [No rigidity or guarding] EXTREMITIES: Normal range of motion. [No edema.] SKIN: Warm, dry, no rash. NEURO: [No focal deficits]. Alert and oriented [x3.] PSYCH: [Normal mood and affect.] Course Vital Signs Vital signs: Vital Signs Temperature 37.1 C 07/12/24 05:03 Pulse Rate 128 H 07/12/24 05:03 Respiratory Rate 20 07/12/24 05:03 Blood Pressure 151/87 H 07/12/24 05:03 Pulse Oximetry 96 07/12/24 05:03 Oxygen Delivery Room Air 07/12/24 05:03 Temperature 37.1 C 07/12/24 05:03 Pulse Rate 115 H 07/12/24 05:51 Respiratory Rate 20 07/12/24 05:51 Blood Pressure 151/87 H 07/12/24 05:03 Pulse Oximetry 94 07/12/24 05:51 Oxygen Delivery Room Air 07/12/24 05:03 MDM - Male Genitourinary MDM Narrative Medical decision making narrative: 64-year-old male presenting for burning with urination. He has no other complaints such as fever, chills, back pain, trouble breathing, chest pain. He states he otherwise feels fine. No history of prostate issues but he states he has been having some difficulty completing emptying his bladder on occasion. No history of urinary I tract infections in the past. No instrumentation or catheterization according to the patient. Urinalysis was obtained which does show a florid urinary tract infection. Patient was started on a dose of Bactrim
[2024-07-12] MEDS: SULFAMETHOXAZOLE/TRIMETHOPRIM 800/160 MG DS TABLET 1 TAB PO (06:02)
[2024-07-12 06:29] VITALS: PULSE 110; RESP 19; O2SAT 98
== END 2024-07-12 06:30 | disposition home or self-care (01) ==
LOC: ANHED 06:10
PROVIDERS: Emergency Provider Student in an Organized Health Care Education/Training Program; PCP Nurse Practitioner Family
DX: N39.0 Urinary tract infection, site not specified (principal); I10 Essential (primary) hypertension; I87.2 Venous insufficiency (chronic) (peripheral); E78.5 Hyperlipidemia, unspecified
CPT/HCPCS: 81001; 87077; 87086; 87088; 87186; 99283; A9270